=== PATIENT | female | born 1955 | race Caucasian/White ===

== ENCOUNTER 2022-04-29 12:04 | Emergency (ER) | payer MEDICARE, OTHER ==
[~2022-04-29] VITALS: Ht 160 cm; Wt 86.2 kg
[2022-04-29 12:39] LABS: BASO # 0.1 10*3/uL (0.0-0.1); BASO % 0.8 % (0.0-1.0); EOS # 0.1 10*3/uL (0.0-0.4); EOS % 0.8 % (1.0-4.0); HEMATOCRIT 36.8 % (37.0-47.0); LYMPH # 1.2 10*3/uL (1.3-4.4); MEAN CELL VOLUME 89.5 fl (81.0-99.0); MEAN CORPUSCULAR HGB 30.7 pg (27.0-31.0); MEAN CORPUSCULAR HGB CONC 34.2 g/dl (33.0-37.0); MEAN PLATELET VOLUME 10.7 fl (9.6-12.3); MONO # 0.4 10*3/uL (0.1-1.0); MONO % 5.6 % (3.0-9.0); NEUT # 4.7 10*3/uL (2.3-7.9); NEUT % 73.5 % (47.0-73.0); PLATELET COUNT AUTOMATED 245 10*3/uL (130-400); RED BLOOD COUNT 4.11 10*6/uL (4.10-5.10); RED CELL DISTRI WIDTH 13.6 % (0-14.5); WHITE BLOOD COUNT 6.4 10*3/uL (4.8-10.8)
[2022-04-29 12:54] LABS: ACT PARTIAL THROMBO TIME 25.4 SECONDS (20.0-32.1)
[2022-04-29 13:10] LABS: ALKALINE PHOSPHATASE 729 U/L (45-117); BUN 23 mg/dl (7-24); CHLORIDE 101 mmol/L (98-107); CREATININE 0.99 mg/dL (0.55-1.02); LIPASE 58 U/L (73-393); POTASSIUM 2.9 mmol/L (3.5-5.1); SGOT/AST 311 IU/L (3-35); SGPT/ALT 619 U/L (12-78); SODIUM 135 mmol/L (136-145); TOTAL PROTEIN 7.6 gm/dL (6.4-8.2)
== END 2022-04-29 14:56 | disposition home or self-care (01) ==
LOC: ED 12:04
PROVIDERS: Emergency Medicine
DX: K80.50 Calculus of bile duct without cholangitis or cholecystitis without obstruction (principal)

== ENCOUNTER 2023-01-09 12:52 | Emergency (ER) | payer MEDICARE, OTHER ==
[~2023-01-09] VITALS: Ht 157.4 cm; Wt 95.3 kg
[~2023-01-09 12:52] MED LIST: ATORVASTATIN CA20 M1 PO; HUMALOG KW200 UNIT/1 SQ; KLOR-CON 1010 ME1 PO; LANTUS SOL100 UNIT/1 SC; ZESTORETIC 20-1 EACH PO
[2023-01-09 14:00] LABS: HEMATOCRIT 28.3 % (37.0-47.0); MEAN CELL VOLUME 94.6 fl (81.0-99.0); MEAN CORPUSCULAR HGB 28.8 pg (27.0-31.0); MEAN CORPUSCULAR HGB CONC 30.4 g/dl (33.0-37.0); MEAN PLATELET VOLUME 9.3 fl (9.6-12.3); PLATELET COUNT AUTOMATED 480 10*3/uL (130-400); RED BLOOD COUNT 2.99 10*6/uL (4.10-5.10); RED CELL DISTRI WIDTH 18.1 % (0-14.5); WHITE BLOOD COUNT 10.1 10*3/uL (4.8-10.8)
[2023-01-09 14:04] LABS: MANUAL DIFF REFLEX YES
[2023-01-09 14:30] LABS: ALKALINE PHOSPHATASE 206 U/L (46-116); BUN 31 mg/dl (9-23); BURR CELLS MODERATE; CHLORIDE 107 mmol/L (98-107); PLATELET SUFFICIENCY HIGH (NORMAL); POLYCHROMASIA SLIGHT; POTASSIUM 4.5 mmol/L (3.4-5.1); SGPT/ALT 7 U/L (10-49); TOTAL CELLS COUNTED 100 #CELLS; TOTAL PROTEIN 5.5 gm/dL (6.0-8.0)
[2023-01-09 14:31] LABS: ACANTHOCYTES FEW
[2023-01-09 14:49] LABS: THYROID STIM HORMONE (HS) 2.252 uIU/ml (0.550-4.780)
[2023-01-09] MEDS ORDERED: CIPRO500 MG PO (18:45)
[2023-01-09] MEDS ORDERED: METRONIDAZOLE500 M1 PO (18:45)
== END 2023-01-09 22:30 ==
LOC: ED 12:52
PROVIDERS: Physician Assistant
DX: E88.09 Other disorders of plasma-protein metabolism, not elsewhere classified (principal); R60.0 Localized edema; I50.9 Heart failure, unspecified; Z98.890 Other specified postprocedural states